=== PATIENT | female | born 2005 | race Caucasian/White ===

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

== ENCOUNTER 2024-02-23 10:39 | Emergency (ER) | payer BC, MEDICAID, SELFPAY ==
--- NOTE | ~2024-02-23 | XR_ITS ---
XR chest 2V Ordering provider: Marie Pope APRN History: 18 years Female with . cough SOB course L side/wheezy throughout . Comparison: November 11, 2023 FINDINGS: MEDIASTINUM: The cardiac silhouette is not enlarged. LUNGS: No infiltrates, effusions or pneumothorax. OTHER: No free air under the diaphragm. IMPRESSION: No acute cardiopulmonary pathology. Reviewed, dictated and finalized at location A.
[2024-02-23 10:48] VITALS: BP 123/78; PULSE 101; RESP 15; TEMP 36.9; O2SAT 96
--- NOTE | 2024-02-23 10:54 | ED.URI ---
HPI - URI/Sore Throat General Chief Complaint: Upper Respiratory Infection Stated Complaint: Cough Time Seen by Provider: 02/23/24 11:06 Source: patient, RN notes reviewed and old records reviewed Mode of arrival: ambulatory Limitations: no limitations History of Present Illness HPI Narrative: 18-year-old female presents to the [facility] with a cough x3 weeks. History asthma Has been using her rescue inhaler Onset (ago): week(s) (3) Related Data Home Medications Medication Instructions Recorded Confirmed montelukast 10 mg tablet 10 mg PO DAILY 06/04/23 02/23/24 Allergies Allergy/AdvReac Type Severity Reaction Status Date / Time cats AdvReac Mild facial Uncoded 02/23/24 10:42 swelling Review of Systems Review of Systems: All systems reviewed & are unremarkable except as noted in HPI and below Constitutional: Constitutional: Reports no additional constitutional complaints Eyes: Eyes: Reports no additional eye complaints ENT: Reports system reviewed and no additional complaints, except as documented Cardiovascular: Cardiovascular: Reports no additional cardiovascular complaints, Denies chest pain and Denies dyspnea Respiratory: Respiratory: Reports as per HPI, Reports chest congestion, Reports cough, Reports dyspnea and Reports wheezing Gastrointestinal: Gastrointestinal: Reports no additional gastrointestinal complaints, Denies abdominal pain, Denies nausea and Denies vomiting Musculoskeletal: Musculoskeletal: Reports no additional musculoskeletal complaints Integumentary/Breasts: Skin/Breast: Reports system reviewed and no additional complaints, except as docu Neurologic: Reports system reviewed and no additional complaints, except as documented Psychiatric: Psychiatric: Reports no additional psychiatric complaints Allergic/Immunologic: Allergic/Immunologic: Reports no additional allergic/immunologic complaints [facility] Past Medical History Medical History Anxiety and depression Asthma Surgical History Surgical History No pertinent past surgical history Social History Social History Social History: pt drinks 2-3 bottles of soda daily Smoking status: Never smoker Gender identity (if verbalized by the patient): Female Comments At the time of my signature, I reviewed and agree with the nursing past medical, surgical, social, and family history. There is no relevant family history pertinent to the patient complaint. Exam Const: General: cooperative, healthy appearing, comfortable, no acute distress, well developed, alert and well nourished Nutritional Appearance: well nourished Orientation/consciousness: patient oriented x3 Limitations: no limitations HENMT: Head: normal to inspection Ears: hearing grossly normal bilaterally, external ears normal, TM's normal bilaterally, EAC's normal, mastoids normal and no periauricular adenopathy Face/Nose/Sinus: Normal external nose present, Normal nares present, Normal nasal mucous membranes and turbinates present, normal facial exam and face symmetric Face and sinus: normal facial exam and face symmetric Mouth: Yes Normal oral and palatal mucosa present, Yes lip normal and Yes tongue normal Throat: posterior oropharynx normal, uvula midline and no uvular edema Eyes: General: appearance normal, both eyes and all related structures Alignment and Position: alignment normal Periorbital: periorbital findings normal Neck: Neck: normal visual inspection, full ROM, no lymphadenopathy and no meningeal signs Chest: Chest palpation & inspection: normal inspection of the chest Resp: Effort & Inspection: normal respiratory effort and able to speak in complete sentences Auscultation: crackles on the left in the mid lung puente and in the lower lung puente, no rales, no rhonchi and wheezes expirat
[2024-02-23] MEDS: predniSONE 20 MG TABLET 60 MG PO (11:25)
[2024-02-23] MEDS: ALBUTEROL SULFATE NEB 2.5 MG/3 ML INH INHALATION (11:26)
[2024-02-23] MEDS: IPRATROPIUM BR 0.02% INH SOLN 0.5 MG/2.5 ML VIAL INHALATION (11:26)
== END 2024-02-23 12:06 | disposition home or self-care (01) ==
PROVIDERS: Emergency Provider Nurse Practitioner; PCP Family Medicine
DX: J45.901 Unspecified asthma with (acute) exacerbation (principal)
CPT/HCPCS: 71046; 94640; 99213; G0463; J7512

== ENCOUNTER 2024-03-16 15:03 | Outpatient (CLI) | payer BC, MEDICAID, SELFPAY ==
[2024-03-16 18:40] LABS: Beta HCG Quantitative < 2.39 mIU/ML
== END 2024-03-16 15:04 | disposition home or self-care (01) ==
LOC: ANHGOSHLAB 15:04
PROVIDERS: PCP Family Medicine; Visit Provider Family Medicine
DX: O20.9 Hemorrhage in early pregnancy, unspecified (principal); Z3A.00 Weeks of gestation of pregnancy not specified
CPT/HCPCS: 36415; 84702

== ENCOUNTER 2024-04-08 08:46 | Emergency (ER) | payer BC, SELFPAY ==
--- NOTE | 2024-04-08 08:48 | ED.URI ---
HPI - URI/Sore Throat General Chief Complaint: Upper Respiratory Infection Stated Complaint: Cough Time Seen by Provider: 04/08/24 08:48 Source: patient Mode of arrival: ambulatory Limitations: no limitations History of Present Illness HPI Narrative: Patient is a 18-year-old female that presents with asthma exacerbation and cough for 2 days. Patient has been around family members at has had upper respiratory infections along with being the same house as her mother's cat. 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 Patient has been using her albuterol inhaler more than appropriate. Patient states she has been up since 4:00 a.m. with worsening cough and shortness of breath. Denies any fever, chills, nausea, vomiting, diarrhea. Related Data Home Medications Medication Instructions Recorded Confirmed montelukast 10 mg tablet 10 mg PO DAILY 06/04/23 04/08/24 Allergies Allergy/AdvReac Type Severity Reaction Status Date / Time cats AdvReac Mild facial Uncoded 04/08/24 08:51 swelling Review of Systems Review of Systems: All systems reviewed & are unremarkable except as noted in HPI and below Constitutional: Constitutional: Denies body ache(s), Denies chills, Denies fatigue, Denies fever(s), Denies headache(s), Denies malaise and Denies weakness Eyes: Eyes: Denies blurry vision, Denies itchy eyes and Denies loss of vision ENT: Denies otalgia, Denies headache(s), Denies nasal congestion, Denies sinus pain and Denies sore throat Cardiovascular: Cardiovascular: Denies chest pain, Denies irregular heart rhythm and Reports dyspnea Respiratory: Respiratory: Reports cough and Denies dyspnea Gastrointestinal: Gastrointestinal: Denies abdominal pain, Denies diarrhea, Denies nausea and Denies vomiting Musculoskeletal: Musculoskeletal: Denies back pain, Denies myalgias and Denies arthralgias Integumentary/Breasts: Skin/Breast: Denies pruritus and Denies rash Neurologic: Denies headache(s), Denies loss of vision and Denies weakness Psychiatric: Psychiatric: Reports no additional psychiatric complaints Endocrine: Endocrine: Denies fatigue Allergic/Immunologic: Allergic/Immunologic: Denies itchy eyes PMFSH Past Medical History Medical History Anxiety and depression Asthma Surgical History Surgical History No pertinent past surgical history Social History Social History Social History: pt drinks 2-3 bottles of soda daily Smoking status: Never smoker Gender identity (if verbalized by the patient): Female Comments At time of signature, agree with nursing past medical, surgical, social and family history. There is no relevant family history pertinent to the presenting complaint. Exam Const: General: cooperative, healthy appearing, comfortable, no acute distress and well nourished Nutritional Appearance: well nourished Orientation/consciousness: patient oriented x3 Limitations: no limitations HENMT: Head: normal to inspection, normocephalic and atraumatic Ears: hearing grossly normal bilaterally, external ears normal, TM's normal bilaterally, EAC's normal and no periauricular adenopathy Face/Nose/Sinus: Normal external nose present, normal facial exam, sinuses nontender and face symmetric Face and sinus: normal facial exam, sinuses nontender and face symmetric Mouth: Yes Normal oral and palatal mucosa present, Yes lip normal, Yes tongue normal, Yes Normal salivary glands and ducts present, Yes oropharynx normal and Yes moist mucous membranes Teeth and gingiva: dentition normal Throat: posterior oropharynx normal, tonsils normal, uvula midline and postnasal drainage Eyes: General: appearance normal, both eyes and all related structures Alignment and Position: alignment normal and position normal Periorbital: periorbital findings normal Eyelids: eyelids normal Pupils: Equal, round and reactive pupils present Neck: Neck: normal visual inspection, full ROM, no lymphadenopathy and supple Chest: Chest palpation & inspection: normal inspection of the chest and normal palpation of entire chest wall Resp: Effort & Inspection: normal respiratory effort, able to speak in complete sentences and Actively coughing Auscultation: no crackles, no rales, no rhonchi and wheezes expiratory wheezes, inspiratory wheezes and throughout Cardio: Rate: regular rate Rhythm: regular rhythm Heart sounds: S1 normal heart sound present and S2 normal heart sound present GI: Inspection: normal to inspection Skin: General skin exam: normal color and no rashes or lesions noted Neuro: General: patient oriented x3 and moves all extremities Cranial nerves: Yes Equal, round and reactive pupils present Speech: normal speech Gait exam (Neuro): Normal gait present Extrem: General: normal to inspection, full ROM and no edema Psych: Appearance: grossly normal and well kempt Mental Status: mental status grossly normal Speech and movement: Normal speech and movement present Affect: normal affect Attitude: cooperative Thought process: Normal thought process present Course Course Emergency Course: Patient going to [facility] for further evaluation and treatment of acute asthma exacerbation Portions of this record may have been created with voice recognition software Level of Care: Express Care Visit Vital Signs Vital signs: Vital Signs Temperature 37.5 C 04/08/24 08:59 Pulse Rate 148 H 04/08/24 08:59 Respiratory Rate 20 04/08/24 08:59 Blood Pressure 171/154 H 04/08/24 08:59 Pulse Oximetry 91 04/08/24 08:59 Oxygen Delivery Room Air 04/08/24 08:59 Temperature 37.5 C 04/08/24 08:59 Pulse Rate 143 H 04/08/24 09:07 Respiratory Rate 30 H 04/08/24 09:07 Blood Pressure 117/62 04/08/24 09:05 Pulse Oximetry 93 04/08/24 09:07 Oxygen Delivery Room Air 04/08/24 09:07 Reviewed Transfer Transfered to: [place] Transfer rationale: Shortness of breath, asthma exacerbation Accepting physician: Romario COOPER - URI/Sore Throat MDM Narrative Medical decision making narrative: Discharge instructions reviewed with patient, as well as provided in writing per nursing staff. The instructions also include specific and strict return/GO TO THE ER as well as f/u information. All questions have been answered, and the patient deny any further questions with discharge and discharge plan. Patient being transferred to [facility] for further evaluation and treatment of acute asthma exacerbation Differential Diagnosis Differential diagnosis: Likely upper respiratory infection, otitis media, bronchitis and other (Asthma exacerbation) Medical Records Attestation: I reviewed the patient's medical records. Lab Data Attestation: I reviewed the patient's lab results. Labs: Lab Results 04/08/24 Range/Units 09:07 POC Influenza A Ag Negative (Negative) POC Influenza B Ag Negative (Negative) POC SARS CoV-2 Ag Negative (Negative) Discharge Plan Discharge Clinical Impression: Asthma exacerbation Qualifiers: Asthma severity: unspecified severity Asthma persistence: unspecified Qualified Code(s): J45.901 - Unspecified asthma with (acute) exacerbation Patient Disposition: Acute Care Hospital Condition: Stable Prescriptions: No Action montelukast 10 mg tablet 10 mg PO DAILY cetirizine 10 mg capsule 10 mg PO DAILY Qty: 30 0RF budesonide-formoterol 80-4.5 mcg/actuation HFA aerosol inhaler 2 puff inhalation Q12H Qty: 10.2 2RF sertraline 100 mg tablet 100 mg PO DAILY Qty: 90 1RF albuterol sulfate 90 mcg/actuation HFA aerosol inhaler 2 puff inhalation Q4-6H PRN (Reason: shortness of breath or wheezing) Qty: 8.5 2RF Follow-up/Referrals: Galen Vazquez DO [Primary Care Provider] - Time of Disposition: 09:26
[2024-04-08 08:59] VITALS: BP 171/154; PULSE 148; RESP 20; TEMP 37.5; O2SAT 91
[2024-04-08 09:05] VITALS: BP 117/62
[2024-04-08 09:07] VITALS: PULSE 143; RESP 30; O2SAT 93
[2024-04-08 09:08] VITALS: PULSE 143; RESP 30; O2SAT 93
[2024-04-08 09:24] LABS: EDCOVIDSCREEN Negative (Negative); EDINFLUASCREEN Negative (Negative); EDINFLUBSCREEN Negative (Negative)
== END 2024-04-08 09:18 | disposition short-term general hospital (02) ==
PROVIDERS: Emergency Provider Nurse Practitioner Family; PCP Family Medicine
DX: J45.901 Unspecified asthma with (acute) exacerbation (principal); Z20.822 Contact with and (suspected) exposure to COVID-19
CPT/HCPCS: 87426; 87804; 99212; G0463

== ENCOUNTER 2024-04-08 09:34 | Inpatient (IN) | payer BC, SELFPAY ==
[2024-04-08] VITALS (23 sets, daily range): BP systolic 102–130; BP diastolic 60–82; PULSE 112–141; RESP 20–35; TEMP 36.6–38.2; O2SAT 90–98; BMI 19.6
--- NOTE | ~2024-04-08 | XR_ITS ---
Portable chest x-ray Comparison: 02/23/2024 Clinical History: Shortness of breath, asthma Findings: Lungs are clear, without focal consolidation or pleural effusion. Cardiomediastinal silho uette is stable. Bones and soft tissues are unremarkable. Impression: Normal chest Reviewed, dictated and finalized at location . RITY MONITOR Impression: Normal chest
[2024-04-08] MEDS: ALBUTEROL SULFATE NEB 2.5 MG/3 ML INH 10 MG INHALATION (09:51)
[2024-04-08] MEDS: IPRATROPIUM BR 0.02% INH SOLN 0.5 MG/2.5 ML VIAL 1 MG INHALATION (09:51)
[2024-04-08] MEDS: methylPREDNISolone SOD SUCC 125 MG VIAL IV PUSH (09:59)
[2024-04-08] MEDS: MAGNESIUM SULF 1 GM/D5W 100 ML 1 GM/100 ML BAG IVPB (09:59)
[2024-04-08] MEDS: SODIUM CHLORIDE 0.9% IV 1,000 ML 999 ML IV CONT ×2 (10:00→12:22)
--- NOTE | 2024-04-08 10:00 | ED.GENADULT ---
HPI - General Adult General Chief complaint: Asthma Stated complaint: asthma Time Seen by Provider: 04/08/24 09:43 History of Present Illness HPI narrative: 18-year-old female presented emergency department for evaluation for an asthma exacerbation. Patient does have a longstanding history of asthma. Patient states that she quit smoking and vaping approximately 1 month ago. Patient denies any prior history of hospitalization or intubation. Patient reports over the last 2 days he has had worsening shortness of breath. Patient has been using her steroid inhaler and her albuterol inhaler. Patient presented to the urgent care today and was referred to the emergency department for evaluation for her increased work of breathing and rapid heart rate. Upon arrival emergency department patient does have increased work of breathing and significant wheezing. Patient does reside also report a prior history miscarriage Related Data Home Medications Medication Instructions Recorded Confirmed montelukast 10 mg tablet 10 mg PO DAILY 06/04/23 04/08/24 Allergies Allergy/AdvReac Type Severity Reaction Status Date / Time Penicillins Allergy Unknown Verified 04/08/24 12:53 cats AdvReac Mild facial Uncoded 04/08/24 08:51 swelling Review of Systems Review of Systems: All systems reviewed & are unremarkable except as noted in HPI and below PMFSH Past Medical History Medical History (Updated 04/08/24 @ 15:44 by Oma Núñez PA-C) Asthma Depression Surgical History Surgical History No pertinent past surgical history Family History Family History (Updated 04/08/24 @ 15:30 by Oma Núñez PA-C) Other Family history non-contributory Social History Social History (Updated 04/08/24 @ 15:31 by Oma Núñez PA-C) Social History: Surrogate medical decision maker: Sammi Simmons, mother. Code status: Full code. Smoking status: Former smoker Tobacco type: e-cigarettes/vaping Second hand tobacco smoke exposure: No Additional smoking assessment comments: vaped for a few years, quit summer 2023 Alcohol intake: never Substance use: never Substance use type: does not use Do You Feel Safe in your Home?: Yes Lack of Transportation: No Lack of Food: Never True Current Housing: I Have Housing Concerned About Future Housing: No Difficulty Paying Gas/Electric Bills: No Difficulty Paying for Meds: No Currently Unemployed: No Education: Decline to Answer Difficulty w/ Childcare or Family Care: No Spiritual care concerns: No Exam Narrative: APPEARANCE: Uncomfortable appearing HEAD: normocephalic, atraumatic. EYES: PERRLA/EOMI, conjunctivae clear. NOSE: Normal no drainage EARS:TMS clear with good light reflex. THROAT: Pharynx clear, no exudate. NECK: Supple. No adenopathy, no masses. RESPIRATORY: Wheezing in all lung puente CARDIOVASCULAR: Regular rate and rhythm without murmurs rubs or gallops. ABDOMINAL: Soft, nontender, nondistended, normal bowel sounds MUSCULOSKELETAL: Moves all extremities. Strength/ROM intact, No edema, No calf tenderness. NEURO: Alert. Cranial nerves II through XII intact. Grossly intact SKIN: Warm, dry. Normal Color Course Vital Signs Vital signs: Vital Signs Temperature 97.9 F 04/08/24 09:37 Pulse Rate 141 H 04/08/24 09:37 Respiratory Rate 35 H 04/08/24 09:37 Blood Pressure 102/65 04/08/24 09:37 Pulse Oximetry 91 04/08/24 09:37 Oxygen Delivery Room Air 04/08/24 09:37 Temperature 100.7 F H 04/08/24 16:00 Pulse Rate 125 H 04/08/24 18:00 Respiratory Rate 24 H 04/08/24 16:00 Blood Pressure 130/74 04/08/24 16:00 Pulse Oximetry 92 04/08/24 16:00 Oxygen Delivery Nasal Cannula 04/08/24 16:00 Oxygen Flow Rate 2 04/08/24 16:[address] [facility] Narrative Medical decision making narrative: 18-year-old female presenting to the emergency department for evaluation for worsening short shortness of breath and an asthma attack. Patient has been using her albuterol inhaler without improvement. Patient has been persistently tachycardic in the emergency department and does have an oxygen requirement, patient is 94% on 2 L of oxygen. Patient initially arrived with a heart rate in the 140s but did improve to the 120s with rehydration. Patient also received a continuous neb of albuterol along with IV Solu-Medrol and IV Mag sulfate. Patient was positive for COVID patient's D-dimer was not elevated. After our treatment patient still desaturated with ambulation and is still persistently tachycardic. Patient will be admitted to the hospitalist Differential Diagnosis Differential Diagnosis: Asthma, pneumonia, pulmonary embolism, COVID, RSV, influenza Vital Signs Vital Signs: Vital Signs Temperature 97.9 F 04/08/24 09:37 Pulse Rate 141 H 04/08/24 09:37 Respiratory Rate 35 H 04/08/24 09:37 Blood Pressure 102/65 04/08/24 09:37 Pulse Oximetry 91 04/08/24 09:37 Oxygen Delivery Room Air 04/08/24 09:37 Temperature 100.7 F H 04/08/24 16:00 Pulse Rate 125 H 04/08/24 18:00 Respiratory Rate 24 H 04/08/24 16:00 Blood Pressure 130/74 04/08/24 16:00 Pulse Oximetry 92 04/08/24 16:00 Oxygen Delivery Nasal Cannula 04/08/24 16:00 Oxygen Flow Rate 2 04/08/24 16:00 Lab Data Lab results reviewed: Yes I reviewed the patient's lab results. 04/08/24 11:12 04/08/24 11:12 Labs: Lab Results 04/08/24 04/08/24 Range/Units 09:55 11:12 WBC 17.5 H (4.5-10.0) K/mm3 RBC 5.46 H (4.2-5.4) M/mm3 Hgb 12.9 (12.0-15.0) g/dL Hct 40.7 (37.0-47.0) % MCV 74.5 L (80-100) fl MCH 23.6 L (26-34) pg MCHC 31.7 L (32-36) g/dl RDW 17.1 H (11.5-14.5) % Plt Count 472 H (150-375) k/mm3 MPV 10.4 (7.4-10.4) fl Immature Gran % (Auto) 0.3 (0-0.5) % Neut % (Auto) 94.6 H (45.5-73.1) % Lymph % (Auto) 2.2 L (18.3-44.2) % [place] % (Auto) 2.7 (2.6-8.5) % Eos % (Auto) 0.0 (0-4.4) % Baso % (Auto) 0.2 (0.2-1.2) % Lymph # (Auto) 0.39 L (0.9-3.2) K/mm3 [place] # (Auto) 0.5 (0.1-0.6) K/mm3 Eos # (Auto) 0.0 (0-0.3) K/mm3 Baso # (Auto) 0.0 (0.0-0.1) K/mm3 Abs Immat Gran (auto) 0.06 H (0.00-0.031) K/mm3 Absolute Neuts (auto) 16.5 H (1.3-6.7) K/mm3 Absolute Nucleated RBC 0.000 (0.0-0.012) K/mm3 Nucleated RBC % 0.0 (0.0-0.2) % Platelet Estimate Increased (Adequate) Anisocytosis 1+ Microcytosis 1+ (NORMAL) Ovalocytes 1+ Schistocytes None seen D-Dimer 0.34 (<0.48) ug/mL Sodium 140 (134-143) mmol/L Potassium 3.8 (3.4-5.0) mmol/L Chloride 102 (98-107) mmol/L Carbon Dioxide 21 L (22-30) mmol/L Anion Gap 17 H (4-12) mmol/L BUN 8 (8-21) mg/dL Creatinine 0.70 (0.7-1.0) mg/dL Estim Creat Clear Calc 92 ml/min Estimated GFR > 60 (59 - ) Glucose 137 H (65-110) mg/dL Calcium 9.6 (8.9-10.7) mg/dL Total Bilirubin 0.3 (0.2-1.3) mg/dL AST 24 (14-36) U/L ALT 22 (6-35) U/L Alkaline Phosphatase 81 (45-116) U/L Total Protein 9.0 H (6.3-8.6) g/dL Albumin 5.1 (3.7-5.6) g/dL Influenza A (RT-PCR) Negative (Negative) Influenza B (RT-PCR) Negative (Negative) RSV (RT-PCR) Negative (Negative) SARS-CoV-2 RNA (RT-PCR) Positive A (Negative) Imaging Data Radiologist's impression: Impressions Chest X-Ray 04/08/24 10:02 Impression: Normal chest Discharge Plan Discharge Clinical Impression: Asthma with acute exacerbation, COVID Patient Disposition: Still a Patient Condition: Serious
[2024-04-08 10:40] LABS: Influenza A QL RT-PCR Negative (Negative); Influenza B QL RT-PCR Negative (Negative); RSV RNA, RT-PCR Negative (Negative); SARS-CoV-2 RNA PCR Positive (Negative)
[2024-04-08 11:19] LABS: Basophils Percent Auto 0.2 % (0.2-1.2); Hematocrit 40.7 % (37.0-47.0); Hemoglobin 12.9 g/dL (12.0-15.0); Immature Granulocyte Absolute 0.06 K/mm3 (0.00-0.031); Immature Granulocyte Percent A 0.3 % (0-0.5); Lymphocytes Absolute Auto 0.39 K/mm3 (0.9-3.2); Lymphocytes Percent Auto 2.2 % (18.3-44.2); Mean Corpuscular HGB Conc 31.7 g/dl (32-36); Mean Corpuscular Hemoglobin 23.6 pg (26-34); Mean Corpuscular Volume 74.5 fl (80-100); Mean Platelet Volume 10.4 fl (7.4-10.4); Monocytes Absolute Auto 0.5 K/mm3 (0.1-0.6); Monocytes Percent Auto 2.7 % (2.6-8.5); Neutrophils Absolute Auto 16.5 K/mm3 (1.3-6.7); Neutrophils Percent Auto 94.6 % (45.5-73.1); Platelet Count Result 472 k/mm3 (150-375); Red Blood Count 5.46 M/mm3 (4.2-5.4); Red Cell Distribution Width 17.1 % (11.5-14.5); White Blood Count 17.5 K/mm3 (4.5-10.0)
[2024-04-08 11:36] LABS: Alanine Aminotransferase 22 U/L (6-35); Albumin Level 5.1 g/dL (3.7-5.6); Alkaline Phosphatase 81 U/L (45-116); Anion Gap 17 mmol/L (4-12); Aspartate Amino Transferase 24 U/L (14-36); Bilirubin,Total 0.3 mg/dL (0.2-1.3); Blood Urea Nitrogen 8 mg/dL (8-21); Calcium 9.6 mg/dL (8.9-10.7); Carbon Dioxide 21 mmol/L (22-30); Chloride 102 mmol/L (98-107); Estimated CRCL calculation 92 ml/min; Estimated Glomerular Filt Rate > 60; Glucose 137 mg/dL (65-110); Potassium 3.8 mmol/L (3.4-5.0); Sodium 140 mmol/L (134-143)
[2024-04-08 11:37] LABS: D Dimer 0.34 ug/mL (<0.48)
[2024-04-08 11:40] LABS: Platelet Estimate Increased (Adequate)
[2024-04-08 11:42] LABS: Anisocytosis 1+; Microcytosis 1+ (NORMAL); Ovalocytes 1+; Schistocytes None Seen
--- NOTE | 2024-04-08 12:26 | PC.NURSE ---
Pt taken to bathroom via wheelchair. Upon returning to room, pt labored, and hypoxic at 87%. notified
--- NOTE | 2024-04-08 12:45 | PM.IMHP ---
H&P: HPI History of Present Illness Date/Time: 04/08/24 12:45 Chief Complaint: Shortness of breath. Narrative: This is a very pleasant 18-year-old female with asthma who presented to the emergency department from urgent care for evaluation of shortness of breath. The patient provides the following history. She has not been feeling well for several days with symptoms to include cough productive of clear mucus, chills and sweats, sore throat, and shortness of breath with wheezing. She has been using her rescue inhaler with lesser and lesser benefit. She did not sleep well last night and her symptoms have been increasingly worse since about 04:30. She denies fever, chest pain, pleuritic pain, palpitations, nausea, vomiting, diarrhea, lower extremity edema, calf pain, and change in smell and taste. She presented to urgent care this morning and was promptly referred to the ED. In the ED: She was tachycardic and tachypneic on arrival with an SpO2 as low as 90% on room air. She was positive for SARS-CoV-2 by PCR. Chest x-ray was unremarkable. She was given a continuous nebulizer treatment, Solu-Medrol 125 mg IV, and magnesium sulfate 1 gm IV and she is being admitted in this setting for further treatment asthma exacerbation likely precipitated by COVID. Review of Systems Review of Systems: 12 systems were reviewed and are negative except for as per HPI. [facility] Past Medical History Medical History (Updated 04/08/24 @ 15:44 by Oma Núñez PA-C) Asthma Depression Surgical History Surgical History No pertinent past surgical history Family History Family History (Updated 04/08/24 @ 15:30 by Oma Núñez PA-C) Other Family history non-contributory Social History Social History (Updated 04/08/24 @ 15:31 by Oma Núñez PA-C) Social History: Surrogate medical decision maker: Sammi Simmons, mother. Code status: Full code. Smoking status: Former smoker Tobacco type: e-cigarettes/vaping Second hand tobacco smoke exposure: No Additional smoking assessment comments: vaped for a few years, quit summer 2023 Alcohol intake: never Substance use: never Substance use type: does not use Do You Feel Safe in your Home?: Yes Lack of Transportation: No Lack of Food: Never True Current Housing: I Have Housing Concerned About Future Housing: No Difficulty Paying Gas/Electric Bills: No Difficulty Paying for Meds: No Currently Unemployed: No Education: Decline to Answer Difficulty w/ Childcare or Family Care: No Spiritual care concerns: No Meds Home Medications and Allergies Home Medications Medication Instructions Recorded Confirmed Type montelukast 10 mg tablet 10 mg PO DAILY 06/04/23 04/08/24 History cetirizine 10 mg capsule 10 mg PO DAILY allergy symptoms 10/16/23 04/08/24 Rx #30 caps budesonide-formoterol HFA 80 2 puff inhalation Q12H #10.2 grams 01/13/24 04/08/24 Rx mcg-4.5 mcg/actuation aerosol inhaler sertraline 100 mg tablet 100 mg PO DAILY #90 tabs 01/13/24 04/08/24 Rx albuterol sulfate 90 mcg/actuation 2 puff inhalation Q4-6H PRN 04/03/24 04/08/24 Rx aerosol inhaler shortness of breath or wheezing #8.5 grams Allergies Allergy/AdvReac Type Severity Reaction Status Date / Time Penicillins Allergy Unknown Verified 04/08/24 12:53 cats AdvReac Mild facial Uncoded 04/08/24 08:51 swelling Vital Signs Vital Signs - 24 hr 04/08/24 09:37 04/08/24 09:50 04/08/24 09:45 Temperature 97.9 F Pulse Rate 141 H 136 H Respiratory Rate 35 H 20 Blood Pressure 102/65 Pulse Oximetry 91 91 Oxygen Delivery Room Air Room Air Oxygen Flow Rate 04/08/24 10:38 04/08/24 11:06 04/08/24 09:41 Temperature Pulse Rate 128 H 138 H Respiratory Rate 22 H 28 H Blood Pressure 102/65 Pulse Oximetry 93 93 Oxygen Delivery Nasal Cannula Oxygen Flow Rate 2 04/08/24 09:46 04/08/24 10:46 04/08/24 11:31 Temperature Pulse Rate 138 H 137 H 133 H Respiratory Rate 29 H 32 H 25 H Blood Pressure 118/71 112/82 110/69 Pulse Oximetry 97 95 90 Oxygen Delivery Oxygen Flow Rate Exam Narrative: General: Moderately ill-appearing female sitting up in bed. Weight: 50.3 kg. BMI: 19.6. HEENT: PERRL, EOMI. Sclera anicteric. Tacky mucous membranes. Oropharynx is slightly erythematous but without exudate. Neck: Supple. No jugular venous distention. Small, slightly enlarged submandibular lymph nodes which are tender to palpation. Respiratory: Mildly tachypneic. Lung sounds are diminished throughout with end-expiratory wheezing. Cardiovascular: Tachycardic with normal S1-S2. Gastrointestinal: Abdomen is soft, nontender, and nondistended with positive bowel sounds. Skin: Warm and dry. Extremities: No cyanosis, clubbing, or edema. Radial and pedal pulses intact. No palpable knots or cords. Neurological: Alert. Cranial nerves 2-12 are grossly intact. No gross focal deficits to casual conversation. Psychiatric: Pleasant and cooperative with normal mood and affect. Judgment and insight intact. H&P: Results Labs Labs: Short CBC 04/08/24 Range/Units 11:12 WBC 17.5 H (4.5-10.0) K/mm3 Hgb 12.9 (12.0-15.0) g/dL Hct 40.7 (37.0-47.0) % Plt Count 472 H (150-375) k/mm3 BMP 04/08/24 11:12 Sodium 140 Potassium 3.8 Chloride 102 Carbon Dioxide 21 L BUN 8 Creatinine 0.70 Glucose 137 H Calcium 9.6 Liver Function 04/08/24 Range/Units 11:12 Total Bilirubin 0.3 (0.2-1.3) mg/dL AST 24 (14-36) U/L ALT 22 (6-35) U/L Alkaline Phosphatase 81 (45-116) U/L Albumin 5.1 (3.7-5.6) g/dL Covid Lab Results 04/08/24 09:55 SARS-CoV-2 RNA (RT-PCR) Positive A (Negative) Imaging Chest X-Ray 04/08/24 10:02 Impression: Normal chest Assessment and Plan Assessment and plan (1) Hypoxia: Code(s): R09.02 - Hypoxemia Status: Acute (2) Asthma exacerbation: Qualifiers: Asthma persistence: unspecified Asthma severity: unspecified severity Qualified Code(s): J45.901 - Unspecified asthma with (acute) exacerbation Code(s): J45.901 - Unspecified asthma with (acute) exacerbation Status: Acute (3) COVID: Code(s): U07.1 - COVID-19 Status: Acute (4) Depression: Code(s): F32.A - Depression, unspecified Status: Acute Plan The patient presented to the emergency department for evaluation of cough and shortness of breath as detailed in HPI. Labs, imaging, EKG, and all reports were personally reviewed. She is being admitted with an asthma exacerbation, likely precipitated by COVID, and has been started on scheduled bronchodilators, dexamethasone, and remdesivir. Continue maintenance inhalers. Initiate isolation precautions. Wean oxygen as tolerated. Blood pressures were reviewed and they have been stable. Tachycardia is likely related to continuous nebulizer. Pulmonary embolism is considered to be less likely by history however if she has increasing oxygen requirements or continued tachycardia, a chest CTA may be prudent. WBC count 17.5 however there was no evidence of pneumonia on imaging thus will hold on antibiotics for now. Check strep screen given sore throat. Her home medications will be reviewed and resumed as appropriate. Findings and treatment plan were discussed with the patient. Questions were solicited and answered to satisfaction. The patient's medical management will be taken over by the hospitalist team in a.m. Quality VTE Prophylaxis VTE prophylaxis: pharmacologic ordered The patient has been admitted under observation status. Hospitalist MIPS Advance Care Plan I have confirmed that the patient's Advanced Care Plan is present, code status is documented, or surrogate decision maker is listed in patient medical record.: Yes Medication Reconciliation I have utilized all available resources to obtain, update and review the patients current medications (includes all prescriptions, OTC, herbals, cannabis, and nutritional supplements).: Yes
[2024-04-08] MEDS: ALBUTEROL SULFATE NEB 2.5 MG/3 ML INH INHALATION ×2 (13:15→19:46)
--- NOTE | 2024-04-08 13:55 | PC.NURSE ---
This RN received report from DESIGN DRAFTER CHIEF.
--- NOTE | 2024-04-08 14:10 | ADMGEN ---
This patient, Fernando Simmons, was admitted to IMU Room 214-01 @ 1410. Patient/family oriented to hospital policies and general routines including ID bracelet, bed and alarms, visiting hours, pain management, procedures, bathroom and other care routines, personal items, smoking policy, room service/diet, and visiting hours. Information on how to activate the Rapid Response Team has been discussed. Patient/Family are encouraged to report perceived risks to care and to ask questions if they do not understand what they are told or what they should do.
[2024-04-08] MEDS: dexAMETHasone 2 MG TABLET 6 MG PO (17:15)
[2024-04-08] MEDS: REMDESIVIR 200 MG/NS 250 ML 200 MG/250 ML BAG 250 MG IVPB (17:15)
[2024-04-08 17:51] LABS: Strep Group A RT-PCR NOT DETECTED (Negative)
[2024-04-08] MEDS: FLUTICASONE/SALMETEROL 45-21 MCG INHALER 1 PUFF 2 PUFF INHALATION (19:46)
[2024-04-08] MEDS: guaiFENesin 12 HR 600 MG TABCR PO (21:00)
[2024-04-09] VITALS (23 sets, daily range): BP systolic 119–130; BP diastolic 64–79; PULSE 71–112; RESP 18–20; TEMP 36.5–37.7; O2SAT 90–99
[2024-04-09] MEDS: ALBUTEROL SULFATE NEB 2.5 MG/3 ML INH INHALATION ×2 (01:35→08:06)
[2024-04-09 04:56] LABS: Basophils Percent Auto 0.1 % (0.2-1.2); Hematocrit 37.7 % (37.0-47.0); Hemoglobin 11.7 g/dL (12.0-15.0); Immature Granulocyte Absolute 0.09 K/mm3 (0.00-0.031); Immature Granulocyte Percent A 0.6 % (0-0.5); Lymphocytes Absolute Auto 0.55 K/mm3 (0.9-3.2); Lymphocytes Percent Auto 3.9 % (18.3-44.2); Mean Corpuscular Hemoglobin 22.9 pg (26-34); Mean Corpuscular Volume 73.9 fl (80-100); Mean Platelet Volume 10.1 fl (7.4-10.4); Monocytes Absolute Auto 0.8 K/mm3 (0.1-0.6); Monocytes Percent Auto 5.9 % (2.6-8.5); Neutrophils Absolute Auto 12.6 K/mm3 (1.3-6.7); Neutrophils Percent Auto 89.5 % (45.5-73.1); Platelet Count Result 442 k/mm3 (150-375); Red Cell Distribution Width 17.3 % (11.5-14.5); White Blood Count 14.1 K/mm3 (4.5-10.0)
[2024-04-09 05:19] LABS: Alanine Aminotransferase 11 U/L (6-35); Albumin Level 4.7 g/dL (3.7-5.6); Alkaline Phosphatase 79 U/L (45-116); Anion Gap 14 mmol/L (4-12); Aspartate Amino Transferase 21 U/L (14-36); Bilirubin,Total 0.3 mg/dL (0.2-1.3); Blood Urea Nitrogen 9 mg/dL (8-21); CRP 2.6 mg/dL (<1.0); Calcium 9.6 mg/dL (8.9-10.7); Carbon Dioxide 20 mmol/L (22-30); Chloride 104 mmol/L (98-107); Estimated CRCL calculation 102 ml/min; Estimated Glomerular Filt Rate > 60; Glucose 121 mg/dL (65-110); Lactate Dehydrogenase 154 U/L (120-246); Magnesium 2.2 mg/dL (1.6-2.3); Potassium 4.8 mmol/L (3.4-5.0); Sodium 138 mmol/L (134-143)
[2024-04-09 05:21] LABS: Anisocytosis 1+; Ovalocytes 1+; Platelet Estimate Adequate (Adequate); Schistocytes None Seen
[2024-04-09 05:44] LABS: Thyroid Stimulating Hormone Reflex 0.701 uIU/mL (0.465-4.68)
[2024-04-09 06:55] LABS: Procalcitonin 0.1 ng/mL
[2024-04-09] MEDS: FLUTICASONE/SALMETEROL 45-21 MCG INHALER 1 PUFF 2 PUFF INHALATION ×2 (08:06→20:35)
[2024-04-09] MEDS: ENOXAPARIN 40 MG/0.4 ML SYRINGE SUB-Q (08:55)
[2024-04-09] MEDS: dexAMETHasone 2 MG TABLET 6 MG PO (08:56)
[2024-04-09] MEDS: MONTELUKAST SODIUM 10 MG TABLET PO (08:56)
[2024-04-09] MEDS: SERTRALINE HCL 50 MG TABLET 100 MG PO (08:56)
[2024-04-09] MEDS: LORATADINE 10 MG TABLET PO (08:56)
[2024-04-09] MEDS: guaiFENesin 12 HR 600 MG TABCR PO ×2 (08:56→21:38)
--- NOTE | 2024-04-09 10:23 | P.PNIM_ITS ---
Progress Note: A&P Assessment and Plan (1) Asthma exacerbation: Qualifiers: Asthma persistence: unspecified Asthma severity: unspecified severity Qualified Code(s): J45.901 - Unspecified asthma with (acute) exacerbation Code(s): J45.901 - Unspecified asthma with (acute) exacerbation Status: Inactive Assessment and Plan: Patient presents with shortness of breath and cough. She was wheezing in the ED. CXR clear. COVID positive. She was given Mag, Solu-Medrol and bronchodilators in the ED. Fluid resuscitation with 2L NS also given. She remains on 2L. Wean O2 as tolerated. Change to Xopenex. (2) COVID: Code(s): U07.1 - COVID-19 Status: Acute Assessment and Plan: Patient found to be COVID positive. WBC elevated at 17K but CXR clear. Suspect most of her symptoms related to asthma exacerbation but agree with treatment. LDH normal, CRP 2.6 and not on high O2 requirement so will hold on baricitinib. She was started on Dexamethasone and Remdesivir. Continue Remdesivir to complete at least 3 days. (3) Hypoxia: Code(s): R09.02 - Hypoxemia Status: Acute Assessment and Plan: Related to above (4) Depression: Code(s): F32.A - Depression, unspecified Status: Acute Assessment and Plan: Mood stable. Continue Zoloft. Plan DVT prophylaxis - Lovenox Code status - full Subjective Date/time seen: 04/09/24 10:23 Interval history: 18yo female with asthma here for shortness of breath She feels better. Less SOB. Cough productive of greenish sputum. Albuterol causing tachycardia. Exam Narrative: Tm 100.7 97.7 119/64 92 18 94% 2L Gen - NARD Chest - inspiratory rhonchi and prolonged expiratory phase with faint expir wheeze anteriorly CV - RRR S1/S2. Tele showing intermittent sinus tachycardia. Abd - Soft, NT/ND, Positive BS Ext - No pedal edema Psych - Nml mood and affect Skin - Warm and dry Objective Data Vital Signs Vital Signs: Vital Signs - 24 hr 04/08/24 10:38 04/08/24 11:06 04/08/24 10:46 Temperature Pulse Rate 128 H 137 H Respiratory Rate 22 H 32 H Blood Pressure 112/82 Pulse Oximetry 93 95 Oxygen Delivery Nasal Cannula Oxygen Flow Rate 2 04/08/24 11:31 04/08/24 13:15 04/08/24 13:25 Temperature Pulse Rate 133 H 113 H 118 H Respiratory Rate 25 H 20 20 Blood Pressure 110/69 Pulse Oximetry 90 Oxygen Delivery Oxygen Flow Rate 04/08/24 12:23 04/08/24 12:31 04/08/24 13:16 Temperature Pulse Rate 134 H 126 H 125 H Respiratory Rate 26 H 28 H 25 H Blood Pressure 116/77 106/63 114/63 Pulse Oximetry 93 92 98 Oxygen Delivery Oxygen Flow Rate 04/08/24 14:35 04/08/24 14:33 04/08/24 16:00 Temperature 100.7 F H Pulse Rate 116 H 124 H Respiratory Rate 24 H Blood Pressure 130/74 Pulse Oximetry 93 94 Oxygen Delivery Nasal Cannula Oxygen Flow Rate 2 04/08/24 16:00 04/08/24 16:00 04/08/24 18:00 Temperature Pulse Rate 132 H 125 H Respiratory Rate Blood Pressure Pulse Oximetry 92 Oxygen Delivery Nasal Cannula Oxygen Flow Rate 2 04/08/24 19:46 04/08/24 19:46 04/08/24 19:58 Temperature Pulse Rate 120 H 123 H Respiratory Rate 20 20 Blood Pressure Pulse Oximetry 93 Oxygen Delivery Nasal Cannula Oxygen Flow Rate 2 04/08/24 20:07 04/08/24 20:00 04/09/24 00:00 Temperature 99.0 F 99.2 F Pulse Rate 117 H 84 Respiratory Rate 22 H 20 Blood Pressure 124/60 130/65 Pulse Oximetry 95 95 93 Oxygen Delivery Nasal Cannula Oxygen Flow Rate 2 04/09/24 00:00 04/09/24 01:36 04/09/24 04:00 Temperature Pulse Rate 76 Respiratory Rate 20 Blood Pressure Pulse Oximetry 94 90 Oxygen Delivery Nasal Cannula Nasal Cannula Oxygen Flow Rate 2 2 04/08/24 20:00 04/08/24 22:00 04/09/24 00:00 Temperature Pulse Rate 134 H 112 H 98 Respiratory Rate Blood Pressure Pulse Oximetry Oxygen Delivery Oxygen Flow Rate 04/09/24 02:00 04/09/24 04:00 04/09/24 05:42 Temperature 98.3 F Pulse Rate 105 H 100 97 Respiratory Rate 20 Blood Pressure 123/71 Pulse Oximetry 93 Oxygen Delivery Oxygen Flow Rate 04/09/24 06:00 04/09/24 08:09 04/09/24 08:06 Temperature Pulse Rate 71 96 Respiratory Rate 18 Blood Pressure Pulse Oximetry 94 Oxygen Delivery Nasal Cannula Oxygen Flow Rate 2 04/09/24 08:15 04/09/24 08:00 Temperature 97.7 F Pulse Rate 92 89 Respiratory Rate 18 18 Blood Pressure 119/64 Pulse Oximetry 99 Oxygen Delivery Oxygen Flow Rate Intake/Output Intake/Output: Intake & Output 04/06/24 04/07/24 04/08/24 04/09/24 23:59 23:59 23:59 23:59 Intake Total 2740 2240 Output Total 1200 900 Balance 1540 1340 Meds/Results Medications: Active Medications Generic Name Dose Route Start Last Admin Trade Name Freq PRN Reason Stop Dose Admin Albuterol 2.5 mg 04/08/24 14:00 04/09/24 08:06 Albuterol Sulfate Neb 2.5 Mg/3 Ml Inh INHALATION 2.5 mg Q6HRT VINCENT Administration Dexamethasone 6 mg 04/08/24 15:45 04/09/24 08:56 Dexamethasone 2 Mg Tablet PO 04/17/24 08:01 6 mg DAILY@0800 VINCENT Administration Enoxaparin Sodium 40 mg 04/09/24 09:00 04/09/24 08:55 Enoxaparin 40 Mg/0.4 Ml Syringe SUB-Q 40 mg DAILY VINCENT Administration Guaifenesin 600 mg 04/08/24 21:00 04/09/24 08:56 Guaifenesin 12 Hr 600 Mg Tabcr PO 600 mg Q12HR VINCENT Administration Remdesivir 100 mg in 250 mls @ 250 mls/hr 04/09/24 22:00 IVPB 04/12/24 22:59 Q24H VINCENT Loratadine 10 mg 04/09/24 09:00 04/09/24 08:56 Loratadine 10 Mg Tablet PO 10 mg QAM VINCENT Administration Montelukast Sodium 10 mg 04/09/24 09:00 04/09/24 08:56 Montelukast Sodium 10 Mg Tablet PO 10 mg DAILY VINCENT Administration Fluticasone/Salmeterol 2 puff 04/08/24 20:00 04/09/24 08:06 Fluticasone/Salmeterol 45-21 Mcg Inhaler 1 Puff INHALATION 2 puff Q12HRT VINCENT Administration Sertraline HCl 100 mg 04/09/24 09:00 04/09/24 08:56 Sertraline Hcl 50 Mg Tablet PO 100 mg DAILY VINCENT Administration Radiology Results: ITS Impressions Chest X-Ray 04/08/24 10:02 Impression: Normal chest Labs Labs: Laboratory Results - last 24 hr 04/08/24 04/08/24 04/08/24 09:55 11:12 17:16 WBC 17.5 H RBC 5.46 H Hgb 12.9 Hct 40.7 MCV 74.5 L MCH 23.6 L MCHC 31.7 L RDW 17.1 H Plt Count 472 H MPV 10.4 Immature Gran % (Auto) 0.3 Neut % (Auto) 94.6 H Lymph % (Auto) 2.2 L [place] % (Auto) 2.7 Eos % (Auto) 0.0 Baso % (Auto) 0.2 Lymph # (Auto) 0.39 L [place] # (Auto) 0.5 Eos # (Auto) 0.0 Baso # (Auto) 0.0 Abs Immat Gran (auto) 0.06 H Absolute Neuts (auto) 16.5 H Absolute Nucleated RBC 0.000 Nucleated RBC % 0.0 Platelet Estimate Increased Anisocytosis 1+ Microcytosis 1+ Ovalocytes 1+ Schistocytes None seen D-Dimer 0.34 Sodium 140 Potassium 3.8 Chloride 102 Carbon Dioxide 21 L Anion Gap 17 H BUN 8 Creatinine 0.70 Estim Creat Clear Calc 92 Estimated GFR > 60 Glucose 137 H Calcium 9.6 Magnesium Ferritin Total Bilirubin 0.3 AST 24 ALT 22 Alkaline Phosphatase 81 Lactate Dehydrogenase C-Reactive Protein Total Protein 9.0 H Albumin 5.1 Procalcitonin TSH (Reflex) Influenza A (RT-PCR) Negative Influenza B (RT-PCR) Negative RSV (RT-PCR) Negative SARS-CoV-2 RNA (RT-PCR) Positive A Group A Strep (PCR) Not detected 04/09/24 04:28 WBC 14.1 H RBC 5.10 Hgb 11.7 L Hct 37.7 MCV 73.9 L MCH 22.9 L MCHC 31.0 L RDW 17.3 H Plt Count 442 H MPV 10.1 Immature Gran % (Auto) 0.6 H Neut % (Auto) 89.5 H Lymph % (Auto) 3.9 L [place] % (Auto) 5.9 Eos % (Auto) 0.0 Baso % (Auto) 0.1 L Lymph # (Auto) 0.55 L [place] # (Auto) 0.8 H Eos # (Auto) 0.0 Baso # (Auto) 0.0 Abs Immat Gran (auto) 0.09 H Absolute Neuts (auto) 12.6 H Absolute Nucleated RBC 0.000 Nucleated RBC % 0.0 Platelet Estimate Adequate Anisocytosis 1+ Microcytosis Ovalocytes 1+ Schistocytes None seen D-Dimer Sodium 138 Potassium 4.8 Chloride 104 Carbon Dioxide 20 L Anion Gap 14 H BUN 9 Creatinine 0.60 L Estim Creat Clear Calc 102 Estimated GFR > 60 Glucose 121 H Calcium 9.6 Magnesium 2.2 Ferritin 10.20 Total Bilirubin 0.3 AST 21 ALT 11 Alkaline Phosphatase 79 Lactate Dehydrogenase 154 C-Reactive Protein 2.6 H Total Protein 8.0 Albumin 4.7 Procalcitonin 0.1 TSH (Reflex) 0.701 Influenza A (RT-PCR) Influenza B (RT-PCR) RSV (RT-PCR) SARS-CoV-2 RNA (RT-PCR) Group A Strep (PCR)
[2024-04-09 10:43] LABS: SPREG INTERNAL CONTROL Positive; Serum Qual hCG Negative
--- NOTE | 2024-04-09 12:10 | PC.NURSE ---
This patient, Fernando Simmons, was received from IMU 214 on 04/09/24 at 1210. Patient/family oriented to unit policies and routines
[2024-04-09] MEDS: ACETAMINOPHEN 325 MG TABLET 650 MG PO (14:19)
[2024-04-09] MEDS: LEVALBUTEROL NEB 1.25 MG/3 ML 0.63 MG INHALATION ×2 (14:37→20:35)
[2024-04-09] MEDS: REMDESIVIR 100 MG/NS 250 ML 100 MG/250 ML BAG 250 MG IVPB (21:39)
[2024-04-10] VITALS (7 sets, daily range): BP systolic 129; BP diastolic 81; PULSE 67–92; RESP 18; TEMP 36.3; O2SAT 95
[2024-04-10] MEDS: LEVALBUTEROL NEB 1.25 MG/3 ML 0.63 MG INHALATION ×2 (02:32→07:29)
[2024-04-10 07:04] LABS: Alanine Aminotransferase 11 U/L (6-35); Albumin Level 4.3 g/dL (3.7-5.6); Alkaline Phosphatase 61 U/L (45-116); Aspartate Amino Transferase 20 U/L (14-36); Bilirubin,Total 0.2 mg/dL (0.2-1.3)
[2024-04-10 07:08] LABS: INR 1.3; Prothrombin Time 16.7 Seconds (11.1-14.7)
[2024-04-10] MEDS: FLUTICASONE/SALMETEROL 45-21 MCG INHALER 1 PUFF 2 PUFF INHALATION (07:29)
[2024-04-10] MEDS: SERTRALINE HCL 50 MG TABLET 100 MG PO (08:48)
[2024-04-10] MEDS: guaiFENesin 12 HR 600 MG TABCR PO (08:48)
[2024-04-10] MEDS: dexAMETHasone 2 MG TABLET 6 MG PO (08:48)
[2024-04-10] MEDS: LORATADINE 10 MG TABLET PO (08:48)
[2024-04-10] MEDS: MONTELUKAST SODIUM 10 MG TABLET PO (08:48)
[2024-04-10] MEDS: ENOXAPARIN 40 MG/0.4 ML SYRINGE SUB-Q (08:49)
--- NOTE | 2024-04-10 11:16 | P.DS_ITS ---
DS: Admitting Diagnosis Discharge Date 04/10/24 Admitting Diagnosis Shortness of breath DS: Discharge Diagnosis Discharge Diagnosis (1) Asthma exacerbation: Qualifiers: Asthma persistence: unspecified Asthma severity: unspecified severity Qualified Code(s): J45.901 - Unspecified asthma with (acute) exacerbation Code(s): J45.901 - Unspecified asthma with (acute) exacerbation Status: Inactive (2) COVID: Code(s): U07.1 - COVID-19 Status: Acute (3) Hypoxia: Code(s): R09.02 - Hypoxemia Status: Acute (4) Depression: Code(s): F32.A - Depression, unspecified Status: Acute DS: Summary Hospital Course Reason for hospitalization: 18yo female with asthma here for shortness of breath. Please see H&P for details. Hospital Course: Patient presents with shortness of breath and cough. She was wheezing in the ED. CXR was clear. COVID positive. She was given Mag, Solu-Medrol and bronchodilators in the ED. Fluid resuscitation with 2L NS also given. She was on 2L. WBC elevated at 17K. Suspect most of her symptoms related to asthma exacerbation but agree with treatment for COVID. She was started on Dexamethasone and Remdesivir. LDH normal, CRP 2.6 and not on high O2 requirement. Patient's HR was elevated at times when she was active and with bronchodilators. Patient is w/o complaints. No calf pain, no chest pain, no back pain, no pleuritic pain. Not on control. test was negative. DDimer was normal. TSH normal. Negative rahel's sign. no cords. No pedal edema. She was weaned off O2. She feels well and is requesting discharge. She overall did well and was able to be discharged home on 04/10/24 Status at Discharge Cognitive/behavioral status at discharge: stable Time Spent with Patient Time attestation: Total time spent providing and/or coordinating discharge services: 35 minutes Time spent: Greater than 30 minutes Exam Narrative: AF 97.3 129/81 92 18 95% ra Gen - NARD Chest - scattered inspiratory rhonchi and prolonged expiratory phase; no wheezing CV - RRR S1/S2. Tele showing intermittent sinus tachycardia. Abd - Soft, NT/ND, Positive BS Ext - No pedal edema Psych - Nml mood and affect Skin - Warm and dry DS: Data Data Completed and Pending Labs on day of discharge: Labs from last 24 hours 04/10/24 06:41 PT 16.7 H INR 1.3 Total Bilirubin 0.2 Direct Bilirubin 0.0 AST 20 ALT 11 Alkaline Phosphatase 61 Total Protein 7.0 Albumin 4.3 Discharge Plan Discharge Attending physician on discharge: Dileep Nieto Discharging Clinician: Dileep Nieto Anticipated Discharge Date/Time: 04/10/24 11:22 Patient Disposition: Home, Self-Care Activity: as tolerated Diet: regular Discharge Instructions: Please avoid large gathering, wear face coverings in public for 5 days and practice social distance. Contact your doctor or call 911 and come to the Emergency Room if you have increasing shortness of breath or other worrisome symptoms. Avoid NSAIDs (ibuprofen, naproxen, Aleve). Tylenol is safe to take. Follow-up with your primary care provider in 1-2 weeks. Please call for appointment. Thank you for using [facility] for your health care needs. Patient Instructions: Antibiotic Form Stand Alone Forms: General Discharge Information Follow-up/Referrals: Galen Vazquez DO [Primary Care Provider] - Call for Appointment Discharge Medications: New prednisone 20 mg tablet 40 mg PO DAILY 4 Days Qty: 8 0RF Continued montelukast 10 mg tablet 10 mg PO DAILY cetirizine 10 mg capsule 10 mg PO DAILY Qty: 30 0RF budesonide-formoterol 80-4.5 mcg/actuation HFA aerosol inhaler 2 puff inhalation Q12H Qty: 10.2 2RF sertraline 100 mg tablet 100 mg PO DAILY Qty: 90 1RF albuterol sulfate 90 mcg/actuation HFA aerosol inhaler 2 puff inhalation Q4-6H PRN (Reason: shortness of breath or wheezing) Qty: 8.5 2RF Date of admission: 04/09/24 11:35 Primary Care Provider: Galen Vazquez Admitting Provider: Sae Elder Attending physician on admission: Dileep Nieto Condition: Stable Hospitalist MIPS Heart Failure (Exclusion) Patient has history of Heart Transplant or Left Ventricular Assistive Device?: No IF YES, STOP HERE Heart Failure (Qualifier) Patient has current or prior documentation of LVEF less than or equal to 40%, or mod/servere depressed LVSF?: No IF NO, STOP HERE
== END 2024-04-10 12:40 | disposition home or self-care (01) | DRG 178 ==
LOC: ANHED 12:28 → ANHIMU 14:33 → ANH3MEDSUR 04-09 12:08
PROVIDERS: Physician Assistant; Admitting Provider General Practice; Emergency Provider Emergency Medicine; PCP Family Medicine; Visit Provider Internal Medicine
DX: U07.1 COVID-19 (principal); J45.901 Unspecified asthma with (acute) exacerbation; R09.02 Hypoxemia; F32.A Depression, unspecified; Z87.891 Personal history of nicotine dependence
CPT/HCPCS: 36415; 71045; 80053; 80076; 82728; 83615; 83735; 84145; 84443; 84703; 85025; 85380; 85610; 86140; 87426; 87637; 87651; 87804; 94640; 94667; 94668; 96361; 96365; 96367; 96372; 96375; 99285; A9270; G0378; J0248; J1650; J2919; J3475; J7030; J8540

== ENCOUNTER 2024-07-21 10:37 | Emergency (ER) | payer BC, SELFPAY ==
[2024-07-21 10:46] VITALS: BP 107/60; PULSE 67; RESP 16; TEMP 36.6; O2SAT 98
--- NOTE | 2024-07-21 10:51 | ED.URI ---
HPI - URI/Sore Throat General Chief Complaint: Upper Respiratory Infection Stated Complaint: cough,back sore,fever, flu exp Time Seen by Provider: 07/21/24 10:51 Source: patient Mode of arrival: ambulatory Limitations: no limitations History of Present Illness HPI Narrative: 19 yo F presents with c/o congestion, cough, sore throat and fatigue for 5 days. Afebrile. States symptoms improving. Denies N/V/D. All Systems reviewed and negative except as noted above. Related Data Home Medications ?Medication ?Instructions ?Recorded ?Confirmed ?Last Taken ?Type montelukast 10 mg tablet 10 mg PO DAILY 06/04/23 07/06/24 04/07/24 History lisdexamfetamine 10 mg capsule 10 mg PO QAM 07/21/24 07/21/24 Unknown History Allergies Allergy/AdvReac Type Severity Reaction Status Date / Time Penicillins Allergy Unknown Verified 07/21/24 10:55 cats AdvReac Mild facial Uncoded 07/05/24 14:51 swelling Review of Systems Review of Systems: CONSTITUTIONAL: Denies fever, chills, or sweats. reports fatigue. EYES: Denies visual changes, redness, or discharge. ENT: Reports rhinorrhea, congestion, sore throat, or otalgia. CARDIOVASCULAR: Denies chest pain, palpitations, or edema. RESPIRATORY: reports cough. Denies dyspnea. GASTROINTESTINAL: Denies abdominal pain, nausea, vomiting, or diarrhea. GENITOURINARY: Denies dysuria or hematuria. SKIN: Denies rash or itching. MUSCULOSKELETAL: Denies back pain, joint pain, or myalgia. NEUROLOGIC: Denies headache, numbness, or weakness. PSYCHIATRIC: Denies anxiety or depression. All other systems reviewed are negative, except as documented in HPI. [facility] Past Medical History Medical History (Updated 07/22/24 @ 00:01 by Betty Varela) Asthma Surgical History Surgical History No pertinent past surgical history Family History Family History (Updated 04/08/24 @ 15:30 by Oma Núñez PA-C) Other Family history non-contributory Social History Social History (Updated 04/08/24 @ 15:31 by Oma Núñez PA-C) Social History: Surrogate medical decision maker: Sammi Simmons, mother. Code status: Full code. Smoking status: Former smoker Tobacco type: e-cigarettes/vaping Second hand tobacco smoke exposure: No Additional smoking assessment comments: vaped for a few years, quit summer 2023 Alcohol intake: never Substance use: never Substance use type: does not use Do You Feel Safe in your Home?: Yes Lack of Transportation: No Lack of Food: Never True Current Housing: I Have Housing Concerned About Future Housing: No Difficulty Paying Gas/Electric Bills: No Difficulty Paying for Meds: No Currently Unemployed: No Education: Decline to Answer Difficulty w/ Childcare or Family Care: No Spiritual care concerns: No Comments At time of signature, agree with nursing past medical, surgical, social and family history. There is no relevant family history pertinent to the presenting complaint. Exam Narrative: GENERAL: This is a well-nourished, well-developed patient, in no apparent distress. HEAD: normocephalic, atraumatic. EYES: PERRL. Sclera clear/white. Vision is grossly intact. EARS: External ears normal, auditory canals clear and without drainage, TMs normal without perforation. Hearing grossly intact. NOSE: External nose normal with clear nasal drainage, mild erythema to nares THROAT: Mucous membranes moist, erythema and clear postnasal drainage NECK: Neck supple, non-tender without lymphadenopathy, masses or thyromegaly. CARDIOVASCULAR: Regular rate and rhythm without murmurs, gallops, or rubs. RESPIRATORY: Clear to auscultation. Breath sounds equal bilaterally. No wheezes, rales, or rhonchi. SKIN: warm, Dry, intact with no suspicious lesions or rash, good texture and turgor. NEURO: awake, alert, and oriented to person, place and time. There were no obvious focal neurologic abnormalities. EXTREMITIES: No joint tenderness, effusion, or edema noted. Course Course Level of Care: Express Care Visit Vital Signs Vital signs: Vital Signs Temperature 36.6 C 07/21/24 10:46 Pulse Rate 67 07/21/24 10:46 Respiratory Rate 16 07/21/24 10:46 Blood Pressure 107/60 07/21/24 10:46 Pulse Oximetry 98 07/21/24 10:46 Oxygen Delivery Room Air 07/21/24 10:46 Temperature 36.6 C 07/21/24 10:46 Pulse Rate 67 07/21/24 10:46 Respiratory Rate 16 07/21/24 10:46 Blood Pressure 107/60 07/21/24 10:46 Pulse Oximetry 98 07/21/24 10:46 Oxygen Delivery Room Air 07/21/24 10:46 reviewed MDM - URI/Sore Throat MDM Narrative Medical decision making narrative: negative COVID and influenza testing. Patient is well-appearing, nontoxic. Lungs clear to auscultation. Recommend medications to treat symptoms. Please be advised this is a medical document. It is intended for [id number] communication. It is written in medical language and may contain unfamiliar abbreviations or verbiage. Medical documents are intended to carry relevant information, facts as evident, and the clinical opinion of the practitioner at the time of the encounter. This report may have been done utilizing a voice recognition system. Attempts have been made to correct errors. However, there may be uncorrected grammatical, spelling, and recognition errors present. The file time of this note does not necessarily represent the time of service. Differential Diagnosis Differential diagnosis: Likely upper respiratory infection, sinusitis, viral infection and influenza Lab Data Labs: Lab Results 07/21/24 Range/Units 11:17 POC Influenza A Ag Negative (Negative) POC Influenza B Ag Negative (Negative) POC SARS CoV-2 Ag Negative (Negative) Discharge Plan Discharge Clinical Impression: Viral upper respiratory tract infection with cough Patient Disposition: Home, Self-Care Condition: Stable Instructions: Upper Respiratory Infection (ED) Additional Instructions: your influenza and COVID test was negative today. Your symptoms are viral and may last 10-14 days. Take medications as prescribed. Drink at least 64 oz of water a day. Place cool mist humidifier in bedroom where you sleep. Follow-up with your primary care physician if symptoms are not improving. Patient Language: Mosotho Prescriptions: New benzonatate 200 mg capsule 200 mg PO TID PRN (Reason: cough) Qty: 20 0RF methylprednisolone [Medrol ([place]ember[place])] 4 mg tablets,dose pack See Rx Instructions PO .COMPLEX Qty: 21 0RF Rx Instructions: orally per package directions No Action montelukast 10 mg tablet 10 mg PO DAILY cetirizine 10 mg capsule 10 mg PO DAILY Qty: 30 0RF lisdexamfetamine 10 mg capsule 10 mg PO QAM budesonide-formoterol 80-4.5 mcg/actuation HFA aerosol inhaler 2 puff inhalation Q12H Qty: 10.2 2RF sertraline 100 mg tablet 100 mg PO DAILY Qty: 90 1RF albuterol sulfate 90 mcg/actuation HFA aerosol inhaler See Rx Instructions .ROUTE .COMPLEX Qty: 8.5 0RF Dose Instruction: INHALE 2 PUFFS BY MOUTH EVERY 4 TO 6 HOURS NEEDED FOR SHORTNESS OF BREATH OR WHEEZING Rx Instructions: INHALE 2 PUFFS BY MOUTH EVERY 4 TO 6 HOURS NEEDED FOR SHORTNESS OF BREATH OR WHEEZING Follow-up/Referrals: Jose Angel Mistry DO [Primary Care Provider] - Time of Disposition: 11:25
[2024-07-21 11:18] LABS: EDCOVIDSCREEN Negative (Negative); EDINFLUASCREEN Negative (Negative); EDINFLUBSCREEN Negative (Negative)
== END 2024-07-21 11:30 | disposition home or self-care (01) ==
PROVIDERS: Emergency Provider Nurse Practitioner Family; PCP Family Medicine
DX: J06.9 Acute upper respiratory infection, unspecified (principal); R05.9 Cough, unspecified; Z20.822 Contact with and (suspected) exposure to COVID-19; Z87.891 Personal history of nicotine dependence; J45.909 Unspecified asthma, uncomplicated
CPT/HCPCS: 87426; 87804; 99213; G0463